=== PATIENT | male | born 1950 | race Two or more races ===

== ENCOUNTER 2020-01-01 04:34 | Day surgery (SDC) | payer OTHER ==
[2019-12-30 15:53] VITALS: BMI 28.8
[~2020-01-01 04:34] MED LIST: ceFAZolin SODIUM 1 GM VIAL IVPB ONE
[2020-01-01] MEDS ORDERED: LIDOCAINE 1%/EPI 1:100000 (20 ML MULTI DOSE VIAL) ONE ×2 (07:17→08:40)
[2020-01-01] MEDS ORDERED: LIDOCAINE HCL 1%, 10 MG/ML (20ML VIAL) ONE (07:33)
[2020-01-01] MEDS ORDERED: EPHEDRINE SULFATE/0.9% NACL/PF 50 MG/10 ML SYRINGE NR ONE (07:35)
[2020-01-01] MEDS ORDERED: PROPOFOL 20 ML ONE ×2 (07:35)
[2020-01-01] MEDS ORDERED: GLYCOPYRROLATE 0.2 MG/1 ML VIAL ONE (07:35)
[2020-01-01] MEDS ORDERED: ROCURONIUM BROMIDE 100 MG/10 ML VIAL ONE (07:35)
[2020-01-01] MEDS ORDERED: MIDAZOLAM HCL 2 MG/2 ML SINGLE DOSE VIAL ONE (07:36)
--- NOTE | 2020-01-01 08:16 | HP ---
History & Physical Update - History History: No Change - Physical Physical: No Change - Assessment Assessment: No Change - Plan Plan: No Change
[2020-01-01] MEDS ORDERED: ceFAZolin SODIUM 1 GM VIAL IVPB ONE (08:39)
[2020-01-01] MEDS ORDERED: LIDOCAINE 1%/EPI 1:100000 (20 ML MULTI DOSE VIAL) IJ ONE (08:48)
[2020-01-01] MEDS ORDERED: BENZOIN/ALOE VERA/STORAX/TOLU 58 ML BOTTLE ONE (09:03)
[2020-01-01] MEDS ORDERED: BENZOIN/ALOE VERA/STORAX/TOLU 58 ML BOTTLE TP ONE (09:04)
--- NOTE | 2020-01-01 09:20 | OP ---
Operative Note - Note: Operative Date: 01/01/20 Pre-Operative Diagnosis: left midback mass Operation: Excision, left midback mass Findings: 10 x8 cm fibrofatty mass/lipoma Post-Operative Diagnosis: Same as Pre-op Surgeon: Denton Schmidt Anesthesia: General Specimens Removed: soft tissue mass/lipoma Estimated Blood Loss (mls): 1 Operative Report Dictated: Yes
[2020-01-01] MEDS ORDERED: ONDANSETRON 4 MG/2 ML VIAL IVPUSH PRN (10:20)
[2020-01-01] MEDS ORDERED: oxyCODONE HCL 5 MG TABLET PO PRN (10:20)
[2020-01-01] MEDS ORDERED: LACTATED RINGERS SOLUTION 1,000 ML IV SCH (10:30)
--- NOTE | 2020-01-01 11:26 | OP ---
DATE OF OPERATION: 01/01/2020 PROCEDURE: Excision biopsy of left mid-back mass. PREOPERATIVE DIAGNOSIS: Left mid-back mass. POSTOPERATIVE DIAGNOSIS: Left mid-back mass. SURGEON: Denton Schmidt MD ANESTHESIA: General via laryngeal mask airway. FINDINGS AND PROCEDURE: This is a 69-year-old male that presents with a 7 cm soft tissue mass of the mid-back on the left side just below inferior and medial to the left scapula. On physical exam, patient has a 10 cm diameter soft tissue mass movable with smooth surface and well-defined borders. So, patient was advised excision biopsy of the mass and consent was obtained after discussing the risks, benefits, and alternatives to the procedure. Patient was brought to the operating room and placed in a supine position. General anesthesia via laryngeal mask airway was administered. Patient was then placed in right lateral decubitus position. The operative site was prepped and draped in the usual sterile fashion. Using lidocaine 1% with epinephrine, local anesthesia was administered to the proposed incision site. A 6-cm transverse incision over the mass was made using scalpel blade number 15 with dissection carried down to the dermis. Further dissection using Bovie cautery was done until the mass was encountered inferior to the superficial fascia. The fascial incision was enlarged, and the mass was completely excised using blunt and sharp dissection with the surgeon's digits and Bovie cautery to excise it from its attachment to the deeper back muscle. The wound was then closed with interrupted Vicryl 3-0 suture for the superficial fascia in [id number] fashion, interrupted Vicryl 3-0 suture for the dermis, and continuous Biosyn 4-0 suture for the subcuticular layer. The wound closure was reinforced with Steri-Strips then covered with pressure dressing. Patient was placed back in supine position and successfully extubated. The patient was then transferred to the postanesthesia care unit in satisfactory condition. Estimated blood loss was about 1 mL. Wound class clean. Patient received 1 g of Ancef prior to the start of the procedure. Kayden [id number] MTDD
[2020-01-01 13:45] VITALS: BP 134/69; PULSE 70; TEMP 97.5
--- NOTE | 2020-01-04 15:40 | PATH ---
Surgical Pathology Report Patient Name: SLIM RAMIREZ Med. Rec. #: [id number] /Age/Gender: 1950 (Age: 69) / M Account: [id number] Location: [facility] SURGICAL Taken: 01/01/2020 Received: 01/01/2020 Reported: 01/04/2020 Physicians: Denton Schmidt M.D. Specimen(s) Received LEFT BACK MASS Clinical History Mass Final Diagnosis MID BACK MASS, LEFT, EXCISION: MATURE FIBROADIPOSE TISSUE CONSISTENT WITH LIPOMA. Electronically Signed Venessa Puga M.D. Gross Description Received in formalin labeled "left mass," is a 6.0 x 4.5 x 2.0 cm portion of yellow, lobulated adipose tissue. Sectioning reveals homogeneous yellow, smooth fat. No areas of hemorrhage or necrosis are identified. [employer] sections are submitted in 2 cassettes. DL/01/01/2020 saudi/01/01/2020
== END 2020-01-01 11:35 | disposition home or self-care (01) ==
LOC: JASU-SURG 04:34
PROVIDERS: ATTEND Surgery
PROC: 0JB70ZZ Excision of Back Subcutaneous Tissue and Fascia, Open Approach (ICD-10-PCS; principal; 2020-01-01 08:00)
DX: D21.6 Benign neoplasm of connective and other soft tissue of trunk, unspecified (principal); E11.9 Type 2 diabetes mellitus without complications; Z79.84 Long term (current) use of oral hypoglycemic drugs
CPT/HCPCS: 82962; 88304-TC; 94760

== ENCOUNTER 2023-05-15 04:59 | Day surgery (SDC) | payer MEDICARE, OTHER ==
[2023-05-08 11:19] VITALS: BMI 25.8
[~2023-05-15 04:59] MED LIST changes: +ACETAMINOPHEN 325 MG TABLET (FP) PO PRN; -ceFAZolin SODIUM 1 GM VIAL IVPB ONE
[2023-05-15] MEDS ORDERED: PHENYLEPHRINE 2.5% OPTHALMIC DROP 2ML BOTTLE ONE (08:53)
[2023-05-15] MEDS ORDERED: CYCLOPENTOLATE HCL 1% OPHTH SOLN 2 ML BOTTLE ONE (08:54)
[2023-05-15] MEDS ORDERED: KETOROLAC TROMETHAMINE 0.5% EYE DROP 1 DROP DROPS ONE (08:54)
[2023-05-15] MEDS ORDERED: TROPICAMIDE 1% OPHTH SOLN 15 ML BOTTLE ONE (08:55)
[2023-05-15] MEDS ORDERED: OFLOXACIN 0.3% OPHTHALMIC SOLUTION 5 ML BOTTLE ONE (08:55)
[2023-05-15] MEDS: TROPICAMIDE 1% OPHTH SOLN 15 ML BOTTLE OP SCH ×3 (09:00→09:10)
[2023-05-15] MEDS: PHENYLEPHRINE 2.5% OPHTH SOLN 15 ML BOTTLE OP SCH ×3 (09:00→09:10)
[2023-05-15] MEDS: OFLOXACIN 0.3% OPHTHALMIC SOLUTION 5 ML BOTTLE OP SCH ×3 (09:00→09:10)
[2023-05-15] MEDS: KETOROLAC TROMETHAMINE 0.5% EYE DROP 1 DROP DROPS OP SCH ×3 (09:00→09:10)
[2023-05-15] MEDS: CYCLOPENTOLATE HCL 1% OPHTH SOLN 2 ML BOTTLE OP SCH ×3 (09:00→09:10)
[2023-05-15 09:28] VITALS: RESP 20
[2023-05-15] MEDS ORDERED: MIDAZOLAM HCL 2 MG/2 ML SINGLE DOSE VIAL ONE (11:32)
[2023-05-15] MEDS ORDERED: POVIDONE-IODINE 5% OPHTHALMIC PREP 30 ML SOLUTION OS ONE (11:53)
[2023-05-15] MEDS ORDERED: TETRACAINE 0.5% OPHTH SOLN 2 ML BOTTLE OS ONE ×2 (11:53)
[2023-05-15] MEDS ORDERED: BSS (NA/CA/MG/K) BALANCED SALT SOLUTION OPHTH SOLN 15 ML BOTTLE OS ONE ×2 (11:54→11:58)
[2023-05-15] MEDS ORDERED: LIDOCAINE HCL 1% PRESERVATIVE FREE - 30ML VIAL IO ONE (12:01)
[2023-05-15] MEDS ORDERED: CHONDROITIN SU A/HYALUR SOD 1 KIT IO ONE (12:02)
[2023-05-15] MEDS ORDERED: TRYPAN BLUE 0.5 ML DISP.SYRIN IO ONE (12:03)
[2023-05-15] MEDS ORDERED: EPINEPHrine/PF 1 MG/1 ML (1:1,000) AMPULE IO ONE (12:05)
[2023-05-15 13:01] VITALS: BP 121/77; PULSE 72; TEMP 97.2
[2023-05-15] MEDS ORDERED: EPINEPHrine/PF 1 MG/1 ML (1:1,000) AMPULE ONE (13:49)
[2023-05-15] MEDS ORDERED: LIDOCAINE HCL/PF 1% SDV 5ML VIAL ONE (13:49)
[2023-05-15] MEDS ORDERED: BSS (NA/CA/MG/K) BALANCED SALT SOLUTION OPHTH SOLN 15 ML BOTTLE ONE (13:50)
[2023-05-15] MEDS ORDERED: POVIDONE-IODINE 5% OPHTHALMIC PREP 30 ML SOLUTION ONE (13:50)
== END 2023-05-15 12:58 | disposition home or self-care (01) ==
LOC: JASU-SURG 04:59
PROVIDERS: ATTEND Ophthalmology
PROC: 08RK3JZ Replacement of Left Lens with Synthetic Substitute, Percutaneous Approach (ICD-10-PCS; principal; 2023-05-15 11:00)
DX: H26.9 Unspecified cataract (principal)
CPT/HCPCS: 66984; V2632; 82962

== ENCOUNTER 2023-05-29 04:04 | Day surgery (SDC) | payer MEDICARE, OTHER ==
[2023-05-24 16:36] VITALS: BMI 25.8
[~2023-05-29 04:04] MED LIST changes: +CYCLOPENTOLATE HCL 1% OPHTH SOLN 2 ML BOTTLE OP SCH; +EPINEPHrine/PF 1 MG/1 ML (1:1,000) AMPULE IO ONE; +KETOROLAC TROMETHAMINE 0.5% EYE DROP 1 DROP DROPS OP SCH; +OFLOXACIN 0.3% OPHTHALMIC SOLUTION 5 ML BOTTLE OP SCH; +PHENYLEPHRINE 2.5% OPHTH SOLN 15 ML BOTTLE OP SCH; +TROPICAMIDE 1% OPHTH SOLN 15 ML BOTTLE OP SCH
[2023-05-29] MEDS ORDERED: PHENYLEPHRINE 2.5% OPTHALMIC DROP 2ML BOTTLE ONE (06:13)
[2023-05-29] MEDS ORDERED: OFLOXACIN 0.3% OPHTHALMIC SOLUTION 5 ML BOTTLE ONE (06:14)
[2023-05-29] MEDS ORDERED: CYCLOPENTOLATE HCL 1% OPHTH SOLN 2 ML BOTTLE ONE (06:14)
[2023-05-29] MEDS ORDERED: KETOROLAC TROMETHAMINE 0.5% EYE DROP 1 DROP DROPS ONE (06:14)
[2023-05-29] MEDS ORDERED: TROPICAMIDE 1% OPHTH SOLN 15 ML BOTTLE ONE (06:14)
[2023-05-29 06:21] VITALS: RESP 18
[2023-05-29] MEDS ORDERED: TROPICAMIDE 1% OPHTH SOLN 15 ML BOTTLE OD ONE ×3 (06:30→06:40)
[2023-05-29] MEDS ORDERED: CYCLOPENTOLATE HCL 1% OPHTH SOLN 2 ML BOTTLE OD ONE ×3 (06:30→06:40)
[2023-05-29] MEDS ORDERED: OFLOXACIN 0.3% OPHTHALMIC SOLUTION 5 ML BOTTLE OD ONE ×3 (06:30→06:40)
[2023-05-29] MEDS ORDERED: KETOROLAC TROMETHAMINE 0.5% EYE DROP 1 DROP DROPS OD ONE ×3 (06:30→06:40)
[2023-05-29] MEDS ORDERED: PHENYLEPHRINE 2.5% OPHTH SOLN 15 ML BOTTLE OD ONE ×3 (06:30→06:40)
[2023-05-29] MEDS ORDERED: MIDAZOLAM HCL 2 MG/2 ML SINGLE DOSE VIAL ONE (07:33)
[2023-05-29] MEDS ORDERED: LIDOCAINE HCL/PF 1% SDV 5ML VIAL ONE (07:43)
[2023-05-29] MEDS ORDERED: EPINEPHrine/PF 1 MG/1 ML (1:1,000) AMPULE ONE (07:43)
[2023-05-29] MEDS ORDERED: TETRACAINE 0.5% OPHTH SOLN 2 ML BOTTLE ONE (07:44)
[2023-05-29] MEDS ORDERED: POVIDONE-IODINE 5% OPHTHALMIC PREP 30 ML SOLUTION ONE (07:44)
[2023-05-29] MEDS ORDERED: VANCOMYCIN 500 MG VIAL (RESTRICTED TO ID ONLY) ONE (07:44)
[2023-05-29] MEDS ORDERED: TRYPAN BLUE 0.5 ML DISP.SYRIN ONE (07:44)
[2023-05-29] MEDS ORDERED: ACETYLCHOLINE 1:100 INTRA-OCUL 20 MG/2 ML KIT ONE (07:44)
[2023-05-29] MEDS ORDERED: SODIUM CHLORIDE 0.9% P/F 10 ML VIAL IJ ONE (07:54)
[2023-05-29] MEDS ORDERED: TETRACAINE 0.5% OPHTH SOLN 2 ML BOTTLE OD ONE (08:11)
[2023-05-29] MEDS ORDERED: POVIDONE-IODINE 5% OPHTHALMIC PREP 30 ML SOLUTION OD ONE (08:12)
[2023-05-29] MEDS ORDERED: ONDANSETRON 4 MG/2 ML VIAL ONE (08:23)
[2023-05-29] MEDS ORDERED: LIDOCAINE HCL 1% PRESERVATIVE FREE - 30ML VIAL IO ONE (08:24)
[2023-05-29] MEDS ORDERED: BSS (NA/CA/MG/K) BALANCED SALT SOLUTION OPHTH SOLN 15 ML BOTTLE IO ONE (08:24)
[2023-05-29] MEDS ORDERED: CHONDROITIN SU A/HYALUR SOD 1 KIT IO ONE (08:25)
[2023-05-29] MEDS ORDERED: EPINEPHrine/PF 1 MG/1 ML (1:1,000) AMPULE IO ONE (08:31)
[2023-05-29 10:56] VITALS: BP 133/82; PULSE 76; TEMP 98.2
[2023-05-29] MEDS ORDERED: CHONDROITIN SU A/HYALUR SOD 1 KIT ONE (11:41)
== END 2023-05-29 09:45 | disposition home or self-care (01) ==
LOC: JASU-SURG 04:04
PROVIDERS: ATTEND Ophthalmology
PROC: 08RJ3JZ Replacement of Right Lens with Synthetic Substitute, Percutaneous Approach (ICD-10-PCS; principal; 2023-05-29 08:00)
DX: H26.9 Unspecified cataract (principal)
CPT/HCPCS: 82962; V2632